=== PATIENT | female | born 1970 | race Caucasian/White ===

== ENCOUNTER 2021-03-27 06:03 | Emergency (ER) | payer MEDICAID ==
[~2021-03-27] VITALS: Ht 162.6 cm; Wt 74.8 kg
[2021-03-27 06:08] VITALS: BP_SYST 141
[2021-03-27 06:30] VITALS: BP_SYST 141
== END 2021-03-27 06:30 | disposition home or self-care (01) ==
LOC: SED 06:03
DX: R07.89 Other chest pain (principal); Z95.9 Presence of cardiac and vascular implant and graft, unspecified
CPT/HCPCS: 93005; 99281

== ENCOUNTER 2021-06-24 12:11 | Emergency (ER) | payer MEDICAID, SELFPAY ==
[~2021-06-24] VITALS: Ht 162.6 cm; Wt 77.1 kg
[2021-06-24 12:24] VITALS: BP_SYST 140
--- NOTE | 2021-06-24 12:31 | NUR ---
Patient to ER bed 07 to gown for evaluation. Side rails up.
--- NOTE | 2021-06-24 12:35 | NUR ---
PT CAME IN C/O DIZZINESS,WEAKNESS, SWEATING, STARTING 1 WEEK AGO. REPORTS HX OF CERVICAL CA- LAST CHEMO TX WAS 1 YEAR AGO. PT ALSO STATES THAT HE PORTACATH HAS A WIRE STICKING OUT OF IT. UPON INSPECTION A SMALL SCAB PRESENT ABOVE PORTACATH, MADE AWARE. PT IS AMBULATORY, AAOX4, V/S STABLE
--- NOTE | 2021-06-24 12:40 | NUR ---
ER DR. CHAN AT THE BEDSIDE EXAMINING PT
--- NOTE | 2021-06-24 12:43 | NUR ---
PORTABLE X-RAY AT THE BEDSIDE
[2021-06-24] MEDS ORDERED: LORazepam 1 MG TABLET PO ONE (13:00)
[2021-06-24 13:19] LABS: BILIRUBIN,URINE NEGATIVE (NEGATIVE); BLOOD, URINE NEGATIVE (NEGATIVE); CLARITY/URINE CLEAR (CLEAR); COLOR,URINE YELLOW (YELLOW); GLUCOSE,URINE NEGATIVE (NEGATIVE); KETONES,URINE NEGATIVE (NEGATIVE); LEUKOCYTE ESTERASE ,URINE NEGATIVE (NEGATIVE); NITRITE, URINE NEGATIVE (NEGATIVE); PH,URINE 6.5 (5.0-8.0); PROTEIN URINE NEGATIVE (NEGATIVE); UROBILINOGEN,URINE 0.2 (0.2-1.0)
--- NOTE | 2021-06-24 13:30 | NUR ---
PT RESTING IN BED NO S/SX OF DISTRESS, V/S STABLE
[2021-06-24 13:39] LABS: HEMOGLOBIN 14.6 g/dL (12.0-16.0)
[2021-06-24 13:44] LABS: BASOPHILS # (AUTO) 0.1 K/uL (0.0-0.2); BASOPHILS % (AUTO) 0.8 % (0.0-2.0); EOSINOPHILS # (AUTO) 0.1 K/uL (0.0-0.4); EOSINOPHILS % (AUTO) 1.6 % (0.0-4.0); HEMATOCRIT 42.6 % (36-48); LYMPHOCYTES # (AUTO) 1.7 K/uL (1.0-5.5); LYMPHOCYTES % (AUTO) 22.6 % (20.5-51.5); MEAN CORPUSCULAR HEMOGLOBIN 33 pg (27-31); MEAN CORPUSCULAR HGB CONC 34 % (32-36); MEAN CORPUSCULAR VOLUME 96 fL (79.0-98.0); MONOCYTES # (AUTO) 0.6 K/uL (0.0-1.0); MONOCYTES % (AUTO) 8.2 % (1.7-9.3); NEUTROPHILS % (AUTO) 66.8 % (40.0-70.0); PLATELET COUNT (AUTO) 188 K/uL (130-430); RED BLOOD CELL COUNT(AUTO) 4.44 MIL/uL (4.2-6.2); RED CELL DISTRIBUTION WIDTH 13.7 % (9.0-15.0); WHITE BLOOD COUNT (AUTO) 7.5 K/uL (4.8-10.8)
[2021-06-24 13:50] LABS: CALCIUM 9.1 mg/dL (8.4-11.0); CREATININE 0.79 mg/dL (0.55-1.30); POTASSIUM 4.1 mmol/L (3.5-5.1)
[2021-06-24 13:53] LABS: INR 0.9 (0.8-1.2); PROTHROMBIN TIME 9.6 SECS (9.5-12.5)
[2021-06-24 13:55] LABS: ALBUMIN 3.6 g/dL (3.4-4.8); TOTAL BILIRUBIN 0.8 mg/dL (0.0-1.0)
[2021-06-24] MEDS ORDERED: LORA-259 PO (14:18)
[2021-06-24 15:00] VITALS: BP_SYST 140
--- NOTE | 2021-06-24 15:01 | NUR ---
Patient given written and verbal discharge instructions and verbalizes understanding. ER MD discussed with patient the results and treatment provided. Patient in stable condition. ID arm band removed. Rx of ATIVAN given. Patient educated on pain management and to follow up with PMD. Pain Scale 0/10. Opportunity for questions provided and answered. Medication side effect fact sheet provided.
== END 2021-06-24 15:00 | disposition home or self-care (01) ==
LOC: SED 12:11
DX: R42 Dizziness and giddiness (principal); R53.1 Weakness; Z79.899 Other long term (current) drug therapy
CPT/HCPCS: 36415; 70450; 71045; 76376; 80053; 81003; 82962; 84484; 85025; 85610; 85730; 93005; 99285; G0482